=== PATIENT | male | born 1935 | race African-American/Black ===

== ENCOUNTER 2020-02-06 11:32 | Inpatient (IN) | payer OTHER ==
[~2020-02-06] VITALS: Ht 180.3 cm; Wt 85.3 kg
[2020-02-06] VITALS (32 sets, daily range): BP systolic 77–134; BP diastolic 45–79
--- NOTE | ~2020-02-06 | HC ---
[facility] [address] [place] [address] CONSULTATION Name: KEELY RICARDO Room #: 243-P ADM IN M.R.#: [id number] Admission: 02/06/20 Attend Phys: Chadd Mann MD Discharge: Date of : 31 Report #: [id number] THIS REPORT FOR: cc: Eulogio Moreira MD,Eulogio Morris,Oma Hahn MD ~ CC: Chadd Moreira REASON FOR CONSULTATION: Elevated creatinine. REASON FOR PRESENTATION: Weakness. HISTORY OF PRESENT ILLNESS: This is obtained from the medical chart. The patient has advanced dementia and is not able to provide me with any details. He was brought from his nursing facility on 02/06/2020 because of a concern of increased weakness. He resides at the [facility]. Nursing staff also reported some increased shortness of breath. He was found to have severe bradycardia. Chest x-ray was consistent with bilateral pulmonary infiltrates, effusion. The patient has had a CTA with contrast on presentation. The patient's creatinine on presentation was within normal range; however, it continued to rise ever since the , up to 1.7 as of this morning. The patient's sodium has been persistently elevated. It looks like that the patient had significant compromise of his oral intake and is not able to take free water orally. PAST MEDICAL HISTORY: 1. Chronic kidney disease. 2. History of pleural effusion, post-thoracentesis. 3. Atrial fibrillation. 4. There is a mention of history of cirrhosis, ascites with past paracentesis. REVIEW OF SYSTEMS: Unobtainable given the patient's current mental status. MEDICATIONS: Obtained from the medical chart revealed that the patient is on: 1. Aspirin. 2. Gabapentin. 3. Lactulose. 4. Glipizide. 5. Lasix. FAMILY HISTORY: Unobtainable given the patient's current mental status. ALLERGIES: None. FAMILY AND SOCIAL HISTORY: Unobtainable given the patient's current mental status. [facility] [address] [place] [address] CONSULTATION Name: KEELY RICARDO Room #: 243-P [facility] IN M.R.#: [id number] Admission: 02/06/20 Attend Phys: Chadd Mann MD Discharge: Date of : 31 Report #: [id number] PHYSICAL EXAMINATION: GENERAL: The patient is extremely cachectic and emaciated. He is confused. VITAL SIGNS: He had significant low blood pressure reading all through yesterday; however, his blood pressure is now 113/61, pulse rate is 84, respiratory rate is 19. HEAD AND NECK: No jugular venous distention. Dry mucous membranes. CARDIOVASCULAR: No rub. ABDOMEN: Soft with distention. EXTREMITIES: Lower extremities, Bladimir wraps applied bilaterally. LABORATORY VALUES: Reviewed. Hemoglobin is 8.2, platelets are 62,000. Sodium is 150, chloride is 110, BUN is 32, creatinine is 1.7. ASSESSMENT, IMPRESSION AND PLAN: 1. Hypernatremia. 2. Acute kidney injury post-contrast exposure. 3. Bilateral pleural effusion. 4. Ascites. 5. Chronic kidney disease. 6. History of cerebrovascular accident. 7. The patient's acute kidney injury is related to contrast exposure, hypotension. This seems to have stabilized. 8. I will reformulate his IV fluid to address his hypernatremia. Discontinue current fluid. 9. No further diuresis. 10. Continue to watch electrolytes. 11. Severe water deficit contributing to his hypernatremia. We will continue to adjust his IV fluid and follow accordingly. The patient is a no code status and given his severe comorbid conditions, palliative and comfort care seems to be reasonable as per the pulmonary note. By: [id number] Oma Morris MD /nt
[2020-02-06 12:23] LABS: HEMATOCRIT 30.6 % (42.0-52.0); MCH 30.4 pg (26.0-34.0); MCHC 32.8 g/dL (28.0-37.0); MCV 92.7 fL (80.0-100.0); RDW 16.3 % (10.5-14.5)
--- NOTE | 2020-02-06 12:24 | EKG ---
[facility] [place] [address] [place] [address] ELECTROCARDIOGRAM REPORT Name: KEELY RICARDO Room #: PRE M.R.#: [id number] Admission: Attend Phys: Discharge: Date of : 31 Report #: [id number] THIS REPORT FOR: cc: Atul Mckinnon MD [facility] ~ THIS REPORT FOR: //name// [facility] ED Test Date: 2020-02-06 Test Time: 11:54:08 Pat Name: KEELY RICARDO Department: Room: Gender: M Stem Shaper: NMD : 1935 Requested By: Radha Bull Order Number: [id number] MD: Atul Mckinnon Measurements Intervals [place] Rate: 78 P: 21 DE: 211 QRS: 22 QRSD: 78 T: QT: 491 QTc: 560 Interpretive Statements SINUS ARRHYTHMIA Borderline low voltage, extremity leads Nonspecific T abnormalities, lateral leads No previous ECG available for comparison Electronically Signed On 02-06-2020 12:24:21 CDT by Atul Mckinnon [email or web address] <ELECTRONICALLY SIGNED> By: Atul Mckinnon MD, FACC 02/06/20 1224 1154 1154 Atul Mckinnon MD, FACC /EPI
[2020-02-06 12:31] LABS: ANION GAP 14 mmol/L (7-16); BUN 31 mg/dL (7-18); CALCIUM 8.7 mg/dL (8.5-10.1); CHLORIDE 110 mmol/L (98-107); CO2 25 mmol/L (21-32); CREATININE 1.2 mg/dL (0.7-1.3); GLUCOSE 105 mg/dL (74-106); POTASSIUM 3.9 mmol/L (3.5-5.1); SODIUM 149 mmol/L (136-145)
[2020-02-06 12:41] LABS: ALBUMIN 4.2 g/dL (3.4-5.0); SGOT 41 U/L (15-37); SGPT 14 U/L (30-65); TOTAL BILIRUBIN 0.6 mg/dL (0.2-1.0); TOTAL PROTEIN 7.3 g/dL (6.4-8.2); TROPONIN-I <0.06 ng/mL (<0.06)
[2020-02-06 13:01] LABS: BE(vivo) 3.3 mmol/L (-2 to +3); PCO2 56.8 mmHg (35.0-45.0); PO2 62.7 mmHg (80.0-100.0); sO2 90.2 % (92.0-98.0)
[2020-02-06 13:20] LABS: ABSOLUTE NEUTROPHILS 0.9 thou/uL (1.4-8.2); ANISOCYTOSIS 2+; ATYPICAL LYMPHS 1 %; PLATELET COUNT 52 thou/uL (150-400); PLATELET ESTIMATE NORMAL
[2020-02-06] MEDS ORDERED: JUVEN PACKET1 EAC1 PO (14:04)
[2020-02-06] MEDS ORDERED: ASA81BEC PO (14:04)
[2020-02-06] MEDS ORDERED: ZINC SULFATE220 MG PO (14:05)
[2020-02-06] MEDS ORDERED: POTASSIUM20 PO (14:06)
[2020-02-06] MEDS ORDERED: GLUCOTROL5 MG PO (14:06)
[2020-02-06] MEDS ORDERED: NEURONTIN100 MG PO (14:06)
[2020-02-06] MEDS ORDERED: KRISTALOSE20 GM PO (14:07)
[2020-02-06] MEDS ORDERED: LASIX 40 MG TAB40 MG PO (14:07)
[2020-02-06] MEDS ORDERED: PROAIR DIGIHAL90 MCG PO (14:08)
--- NOTE | 2020-02-06 16:15 | NUR ---
Patient admitted to ICU room 241 per cart from the ED at 1510. Attached to cardiac and O2 sat monitors. BP monitored. Wound care to lower extermities done after photos obtained. Extermities cleaned with sterile water, saline gauze to ulcer area of rt posterior leg, zerofoam gauze, ABD's , kerlix and erika wrap to leg lesions. Condom cath applied, Patient unresponsive throughout admission.
--- NOTE | 2020-02-06 17:30 | NUR ---
Patient is alert and responsive, able to tell us his name, age and date of . Asking about what happened to him. Singer cath inserted. awaiting repeat creatinine results, for ct of chest for PE r/o.
[2020-02-06 17:59] LABS: CALCIUM 8.6 mg/dL (8.5-10.1); CREATININE 1.1 mg/dL (0.7-1.3); POTASSIUM 4.1 mmol/L (3.5-5.1)
[2020-02-06 18:00] LABS: MAGNESIUM 2.4 mg/dL (1.8-2.4)
--- NOTE | 2020-02-06 20:50 | NUR ---
[address] PER BED WITH O2 VIA FM. WITHOUT INCIDENT SERUM CREATININE WAS 1.1. PATIENT HAD BRIEF EPISODES OF HEART RATE DECREASING AND ONCE BP DIPPED INTO THE 70'S BUT THEN HEART RATE UP TO THE 70'S AND BP IN THE 110'S. PATIENT IS ALERT FOR CT SCAN. PROVO BOOTS APPLIED.
[2020-02-06 22:16] LABS: URINE BILIRUBIN NEGATIVE (Negative); URINE BLOOD 3+ (Negative); URINE CLARITY SL CLOUDY; URINE COLOR YELLOW; URINE GLUCOSE-RANDOM* NEGATIVE (Negative); URINE KETONES NEGATIVE (Negative); URINE LEUKOCYTES-REFLEX NEGATIVE (Negative); URINE NITRITE-REFLEX NEGATIVE (Negative); URINE PROTEIN (DIPSTICK) TRACE (Negative); URINE SPECIFIC GRAVITY 1.015 (1.005-1.035); URINE UROBILINOGEN 0.2 E.U./dl (0.2-1.0)
[2020-02-06 22:23] LABS: CASTS None Seen /LPF (None Seen); CRYSTALS None Seen /LPF (None Seen); SQUAMOUS 0-3 Few /LPF (0-3); URINE RBC >20 Many /HPF (0-2)
[2020-02-06 22:24] LABS: BACTERIA-REFLEX 1-9 Few /HPF (None Seen); URINE WBC-REFLEX None Seen /HPF (0-5)
[2020-02-07] VITALS (55 sets, daily range): BP systolic 86–140; BP diastolic 38–82
[2020-02-07 05:00] LABS: ABSOLUTE NEUTROPHILS 1.1 thou/uL (1.4-8.2); EOSINOPHILS 4.7 % (0.0-3.0); WBC 3.1 thou/uL (4.0-11.0)
[2020-02-07 05:02] LABS: BASOPHILS 0.4 % (0.0-2.0); HEMATOCRIT 26.7 % (42.0-52.0); LYMPHOCYTES 53.1 % (24.0-44.0); MCH 30.6 pg (26.0-34.0); MCHC 33.6 g/dL (28.0-37.0); MCV 91.1 fL (80.0-100.0); MONOCYTES 5.2 % (1.0-8.0); PLATELET COUNT 46 thou/uL (150-400); POLYS 36.6 % (36.0-66.0); RBC 2.93 mil/uL (4.50-6.00); RDW 15.9 % (10.5-14.5)
[2020-02-07 05:30] LABS: ALBUMIN 3.2 g/dL (3.4-5.0); ANION GAP 7 mmol/L (7-16); BUN 30 mg/dL (7-18); CALCIUM 8.6 mg/dL (8.5-10.1); CHLORIDE 110 mmol/L (98-107); CO2 32 mmol/L (21-32); CREATININE 1.4 mg/dL (0.7-1.3); GLUCOSE 50 mg/dL (74-106); MAGNESIUM 2.2 mg/dL (1.8-2.4); POTASSIUM 4.1 mmol/L (3.5-5.1); SGOT 38 U/L (15-37); SGPT 21 U/L (30-65); SODIUM 149 mmol/L (136-145); TOTAL BILIRUBIN 0.7 mg/dL (0.2-1.0); TOTAL PROTEIN 6.7 g/dL (6.4-8.2); TROPONIN-I <0.06 ng/mL (<0.06)
--- NOTE | 2020-02-07 09:00 | NUR ---
WOUND NURSE HERE. STATE THEY WILL CONSULT WOUND MD FOR ORDERS ON VASCULAR WOUNDS TO LES. SACRAL REGOIN SLIGHTLY DISCOLORED WELL.
--- NOTE | 2020-02-07 09:29 | NUR ---
WOUND CONSULT; THE PATIENT HAS WOUNDS TO THE LOWER EXT(S) WITH EDEMA. HIS ICU STATUS AND POSSIBLE NEED FOR COMPRESSION WE WILL CONSULT DR FESTUS LANCE. DISCUSSED WITH KATHY
--- NOTE | 2020-02-07 10:00 | NUR ---
DR. KOHLER NOTIFED OF HR 30S BRIEFLY. BP WAS STABLE. SEE VSS. ALSO REPORTED HYPOGLYCEMIA. ORDERS GIVEN. DR. LINDSEY CALLED BACK. STATES HE WAS GOING TO LOOK AT EVERYTHING AND PERHAPS ADD DEXTROSE TO IV. WILL HOLD OFF ON IV UNTIL DR. Josy COX DECIDES. REPORTED TO MD THAT PT WAS DNR IN [facility]. MD WILL PUT DNR ORDERS IN COMPUTER. NO FAMILY LISTED TO NOTIFY.
--- NOTE | 2020-02-07 10:11 | NUR ---
chart review. cm unable to visit with pt rt in icu and preserve ppe. pt lives ltc at [facility]. cm spoke with daughter peg via phone call, she reported he used wheel chair and sometimes could go from bed to wheel chair on his own. able to feed self meals. he used to come and get fluid taken off, agree with dcp back to [facility] ltc when stable per charbel ruvalcaba. will cont following as needed for dc needs.
--- NOTE | 2020-02-07 11:30 | NUR ---
PT TRANSFERRED TO POD 2 ROOM 243 ALL BELONGINGS WITH PT.
[2020-02-07 15:29] LABS: INR 1.1; PROTIME 10.8 Seconds (9.3-11.4)
[2020-02-08] VITALS (33 sets, daily range): BP systolic 84–130; BP diastolic 37–85
[2020-02-08 06:27] LABS: HEMOGLOBIN 9.1 gm/dL (14.0-18.0); WBC 3.2 thou/uL (4.0-11.0)
[2020-02-08 06:31] LABS: HEMATOCRIT 27.5 % (42.0-52.0); MCH 30.7 pg (26.0-34.0); MCV 92.9 fL (80.0-100.0); RBC 2.96 mil/uL (4.50-6.00); RDW 15.7 % (10.5-14.5)
[2020-02-08 06:32] LABS: CALCIUM 8.3 mg/dL (8.5-10.1); CREATININE 1.6 mg/dL (0.7-1.3); MAGNESIUM 2.2 mg/dL (1.8-2.4); POTASSIUM 3.8 mmol/L (3.5-5.1)
--- NOTE | 2020-02-08 10:27 | NUR ---
0915 CONSENT FOR PLT TRANSFUSION AND THORACENTSIS- ARACELI OVALLES GAVE CONSENT OVER TELEPHONE. 0945 DR LINDSEY AT BEDSIDE-NEW ORDERS FOR FLUIDS AND PLTS. 1025 DR PAREKH AND ZHOU AT BEDSIDE FOR THORACENTESIS. 1010 DR MARCANO AT BEDSIDE, IF PT TOLERATES THORACENTSIS, OK TO MOVE TO [facility]
[2020-02-08 12:28] LABS: CLARITY TURBID; COLOR RED; SOURCE RIGHT CHEST; TOTAL VOLUME 60 mL
--- NOTE | 2020-02-08 13:35 | HC ---
[facility] [address] [place] [address] CONSULTATION Name: KEELY RICARDO Room #: 243-P ADM IN M.R.#: [id number] Admission: 02/06/20 Attend Phys: Chadd Mann MD Discharge: Date of : 31 Report #: [id number] THIS REPORT FOR: cc: Eulogio Moreira MD,Eulogio Lundberg,Puma Peacock MD ~ CC: Chadd Moreira DATE OF SERVICE: 02/07/2020 CHIEF COMPLAINT: Lower extremity ulcerations. HISTORY OF PRESENT ILLNESS: This is an 84-year-old male patient who is seen in the Intensive Care Unit. He is a little bit confused and history is somewhat limited. Per his admission history and physical, he presented from [facility] with increasing shortness of breath. He was noted to have some pulmonary edema. I have been asked to see him with regard to wound care. PAST MEDICAL HISTORY: Positive for history of respiratory failure, congestive heart failure, bradycardia, dementia, type 2 diabetes mellitus, chronic kidney disease stage 3, cirrhosis of the liver and history of pleural effusions. MEDICATIONS: Include aspirin, Dylan, zinc, Glucotrol, Neurontin, K-Dur, Lasix, Kristalose and ProAir Digihaler. SOCIAL HISTORY: Negative for alcohol or tobacco use. FAMILY HISTORY: Noncontributory. REVIEW OF SYSTEMS: Really not obtainable due to his current level of dementia. PHYSICAL EXAMINATION: VITAL SIGNS: At this time include temperature 36.5, pulse 60, respiratory rate 15, blood pressure 118/52. GENERAL: This is a chronically ill-appearing male patient who appears to be in minimal distress. HEENT: Head normocephalic. Nose and throat were clear. NECK: Supple. LUNGS: Diminished. HEART: Regular rhythm. ABDOMEN: Soft, nontender. EXTREMITIES: Lower extremities demonstrates several small areas of ulceration on the lower extremities, more on the right than on the left with venous stasis dermatitis bilaterally. The wounds/ulcerations are not overtly infected. NEUROLOGIC: The patient does appear to move symmetrically. [facility] [address] [place] [address] CONSULTATION Name: KEELY RICARDO Room #: 243-P [facility] IN M.R.#: [id number] Admission: 02/06/20 Attend Phys: Chadd Mann MD Discharge: Date of : 31 Report #: [id number] LABORATORY STUDIES: Include sodium 149, potassium 4.1, chloride 110, BUN 30, creatinine 1.4, albumin is 3.2. White blood cell count 3.1 with a hemoglobin of 9.0. CLINICAL IMPRESSION: 1. Venous type ulcerations, bilateral lower extremity. 2. Venous stasis dermatitis, bilateral lower extremities. 3. Congestive heart failure with exacerbation. 4. Chronic kidney disease stage 3. 5. Type 2 diabetes mellitus. 6. Advanced dementia. 7. Mild protein-calorie malnutrition. RECOMMENDATIONS: At this point in time, we will recommend AmLactin lotion to the dry skin, Xeroform gauze to the open areas, followed by ABD, Kerlix, Bladimir wrap from toes to knees. Elevation of both lower extremities. Heel protectors at all times. We will recommend maximizing nutrition to promote wound healing. The hospitalist and Cardiology are managing his other problems including hypertension, congestive heart failure, AFib, diabetes and chronic kidney disease. I appreciate being asked to see him in consultation. We will continue to follow here in the hospital. <ELECTRONICALLY SIGNED> By: Puma Lundberg MD 02/08/20 1335 1711 1919 Puma Lundberg MD /nt
[2020-02-08 14:35] LABS: BF NEUTROPHILS 2 %; BF NUCLEATED CELLS 4295 /mm3; BF RBC 29726 /mm3
[2020-02-08 14:36] LABS: BF MACROPHAGE 18 %
--- NOTE | 2020-02-08 15:08 | NUR ---
FAXED CLINICAL UPDATE TO [facility] RECEIVED CONFIRMATION AND SPOKE WITH CONNIE IN ADM SHE RECEIVED UPDATE. DP TO FOLLOW.
[2020-02-09] VITALS (58 sets, daily range): BP systolic 81–135; BP diastolic 22–82
--- NOTE | 2020-02-09 02:21 | NUR ---
Beginning of shift temp 100.5 axillary, urine out put 50ml in 4 hours, patient becoming tachy-HR 90s & SBP 80-90s. Arianna Shine TREND INVESTIGATOR notified, blood cultures X2, lactic acid, and LR 500ML bolus orders given.Orders implemented
[2020-02-09 03:10] LABS: HEMOGLOBIN 8.5 gm/dL (14.0-18.0); MCHC 32.6 g/dL (28.0-37.0); MCV 92.1 fL (80.0-100.0); RBC 2.82 mil/uL (4.50-6.00); RDW 15.7 % (10.5-14.5); WBC 4.3 thou/uL (4.0-11.0)
[2020-02-09 03:12] LABS: CALCIUM 7.8 mg/dL (8.5-10.1); CREATININE 1.7 mg/dL (0.7-1.3); POTASSIUM 4.2 mmol/L (3.5-5.1)
[2020-02-09 04:43] LABS: BE(vivo) 5.4 mmol/L (-2 to +3); HCO3 31.4 mmol/L (22.0-26.0); PO2 83.3 mmHg (80.0-100.0); pH 7.383 (7.360-7.450); sO2 95.9 % (92.0-98.0)
--- NOTE | 2020-02-09 07:44 | NUR ---
DR. LINDSEY HERE ROUNDING ON PT.NOTIFIED OF POSITIVE SEPSIS SCREEN-TEMP 100.5, LOW BP, INCREASED HR AND SHIFT TOTAL URINE OUTPUT 175ML, AND INTERVENTIONS. DR. LINDSEY STATES-WILL SEE PT SHORTLY AND WRITE ORDERS NEEDED.
--- NOTE | 2020-02-09 11:17 | NUR ---
ASSUMED CARE @ 0700 02/09/20, PT ASSESSMENTS AND VSS COMPLETE PER ICU PROTOCOL. DR LINDSEY @ BEDSIDE @ 0730, IT WAS COMMUNICATED TO HIM BY THE GRINDER SET UP OPERATOR RN THAT PT SCORED POSITIVE FOR SEPSIS AND OUTPUT HAD BEEN LOW THROUGH OUT THE NIGHT. DIPESH SHERIFF @ BEDSIDE @ 0740, NO ORDERS RECIEVED. DR MARCANO @ BEDSIDE @ 1100, DR MARCANO INFORMED ABOUT MINIMAL UO 20-30ML/HR, NO ORDERS RECIEVED AT THIS TIME.
[2020-02-09 16:06] LABS: BODY FLUID ALBUMIN 2.3 g/dL (Not Estab.); BODY FLUID AMYLASE 62 U/L (()); BODY FLUID GLUCOSE 94 mg/dL (()); BODY FLUID LDH 189 IU/L (()); BODY FLUID PROTEIN 3.9 g/dL (())
--- NOTE | 2020-02-09 23:17 | NUR ---
IV ATTEMPTS BY THIS RNX2, X1 BY ADDITIONAL LOCOMOTIVE ENGINEER DIESEL. CALL TO ER TO ASK FOR HELP, POSSIBLE EJ. ATTEMPT X2 BY BUNDLER SEASONAL GREENERY. ER BRANCH OPERATIONS COORDINATOR WITH Fina CUI PLACED FOR FLUIDS AND MED ADMINISTRATION.
[2020-02-10] VITALS (21 sets, daily range): BP systolic 83–127; BP diastolic 39–63
[2020-02-10 05:26] LABS: HEMOGLOBIN 8.2 gm/dL (14.0-18.0); MCH 30.2 pg (26.0-34.0); MCHC 32.9 g/dL (28.0-37.0); MCV 91.7 fL (80.0-100.0); RBC 2.73 mil/uL (4.50-6.00); RDW 15.8 % (10.5-14.5); WBC 3.7 thou/uL (4.0-11.0)
[2020-02-10 05:40] LABS: ALBUMIN 3.1 g/dL (3.4-5.0); CALCIUM 8.1 mg/dL (8.5-10.1); CREATININE 1.7 mg/dL (0.7-1.3); MAGNESIUM 2.1 mg/dL (1.8-2.4); POTASSIUM 3.7 mmol/L (3.5-5.1); TOTAL PROTEIN 6.6 g/dL (6.4-8.2)
--- NOTE | 2020-02-10 07:54 | NUR ---
ASSUMMED CARE FROM NIGHT NURSE AT 0700. DR. RIOS IN TO EXAMINE PATIENT, ORDERS NOTED
[2020-02-10 11:06] LABS: SOURCE CHEST
--- NOTE | 2020-02-10 12:17 | NUR ---
chart review. pt remain on o2 per nc. possible going to have swallow eval. in m/s status. cm spoke with daughter peg via phone call, no concerns or needs voice. thank you for calling per peg. cm provided verbal report to admit at [facility]. discuss with hospitalist, pt will need covid test sat or sun for anticipated dc back to [facility] on thursday.
--- NOTE | 2020-02-10 16:40 | NUR ---
PATIENT TRANSFERRED TO ROOM 460 VIA BED WITH O2 AND BELONGINGS. REPORT CALLED TO BALTAZAR. PATIENT'S DAUGHTER CALLED BACK AFTER MESSAGE LEFT AND UPDATED TO THE ROOM NUMBER AND PATIENT'S STATUS. PATIENT REMAINS CONFUSED.
--- NOTE | 2020-02-10 17:07 | PATH ---
[facility] [address] [place] [address] PATHOLOGY RPT PROCEDURE Name: KEELY RICARDO Room #: 460-P ADM IN M.R.#: [id number] Admission: 02/06/20 Date of : 31 Discharge: Report #: [id number] Path Case #: [id number] Note [facility] Accession Number: [id number] TESTS RESULT FLAG UNITS REF RANGE LAB Clinician Provided Cytology Information No. of containers..01 Other (Miscellaneous) Source: RIGHT PLEUAL FLUID DIAGNOSIS: 02 RIGHT PLEUAL FLUID NEGATIVE FOR MALIGNANT EPITHELIAL CELLS. REACTIVE MESOTHELIAL CELLS ARE PRESENT. THIS INTERPRETATION INCLUDES EVALUATION OF A CELL BLOCK. Pathologist ICD10: 02 I50.33 Signed out by: 02 Hilda Mcginnis MD, Pathologist NPI- [id number] Performed by: 01 Ca [employer]ang [employer]pler ([facility]) Gross description: 01 20ML, CLOUDY RED, 1 TP 1 CB /LCS 02/09/2020 1423 Local FLAG LEGEND: L-Low Normal,H-High Normal,LL-Alert Low,HH-Alert High <-Panic Low,>-Panic High,A-Abnormal,AA-Critical Abnormal Performed at: [address] [place] [address] Swapnil Morales MD, [address] [address] Hilda Mcginnis MD, Specimen Comment: A courtesy copy of this report has been sent to [phone], [phone] Specimen Comment: [phone] Specimen Comment: Report sent to / DR LINDSEY Performed at: [address], [place], [place] [id number] MD Swapnil Morales MD Phone: [phone]
--- NOTE | 2020-02-10 17:56 | NUR ---
Pt transfered from icu per bed at 1700 in stable condition.Assisted pt with tray setup and pt took few bites of mashed potato with carrot.Pt doesn't like pureed diet.Assessment completed.No changes in previous assessment.Pt in bed resting and watching tv.Will continue to monitor.
--- NOTE | 2020-02-11 05:33 | NUR ---
ASSUMED CARE OF PT AT 1900HRS. PT IS AOX1-2 AND NEEDS MUST BE ANTICIPATED. FALL PRECAUTION IN PLACE. MARY IN PLACE AND IS PATIENT. IVF CONTINUED. PT HAS LOW UO. PT WAS ABLE TO GET COMFORTABLE AND SLEEP PART OF THE SHIFT. VSS AND NO S/S OF ACUTE DISTRESS. WILL CONTINUE TO MONITOR.
[2020-02-11 06:09] LABS: CALCIUM 7.7 mg/dL (8.5-10.1); CREATININE 1.4 mg/dL (0.7-1.3); PHOSPHORUS 2.6 mg/dL (2.5-4.9); POTASSIUM 3.4 mmol/L (3.5-5.1)
[2020-02-11 07:46] VITALS: BP 115/52
[2020-02-11 17:08] VITALS: BP 129/69
--- NOTE | 2020-02-11 17:48 | NUR ---
Assumd pt care this am, alert to self and is forgetful. FC in place draining yellow urine. Pt is a feeder, 2 liters of O2 via NC in place. Right sided weakness is noted. Bed bath given and wound care and dressing change done. Currenltly on honey thickened liquids and a pureed diet. Hydration promoted, small frequent feedings done. Plan is for a thoracenthesis on Thursday. POc followed with no signs or verbalizations of distress noted.
[2020-02-11 20:47] VITALS: BP 132/67
[2020-02-12 05:56] LABS: ALBUMIN 2.9 g/dL (3.4-5.0); CALCIUM 7.6 mg/dL (8.5-10.1); PHOSPHORUS 2.4 mg/dL (2.5-4.9); POTASSIUM 3.9 mmol/L (3.5-5.1)
[2020-02-12 08:13] VITALS: BP 108/49
[2020-02-12 18:00] VITALS: BP 131/68
[2020-02-12 19:26] VITALS: BP 142/87
--- NOTE | 2020-02-13 03:28 | NUR ---
patient aox1 confused and forgetful. patient was yelling when need help. dressing done on ble, bleeding and ozzing noted with a strong odor. patient turned q 2 hours. patient encouraged fluids and food. fall precaution in place.patient has edema +3 on ble and bue, ble and bue elevated. patient in bed asleep at this time breathing regular and unlaboured.
[2020-02-13 07:50] VITALS: BP 107/65
[2020-02-13 10:00] LABS: CREATININE 1.2 mg/dL (0.7-1.3); POTASSIUM 4.1 mmol/L (3.5-5.1)
--- NOTE | 2020-02-13 14:08 | NUR ---
CARE TEAM INDICATED THAT PT IS TO HAVE A PARACENTESIS TODAY. REPEAT COVID TEST HAS BEEN ORDERED AND COLLECTED PT'S LAST TEST WAS FROM 02/06/20. PHYSICIAN HAD MENTIONED PALLIATIVE CARE CONSULT. IT IS ANTICPATED THAT PT WILL RETURN TO [facility] L[facility] ONCE MEDICALLY STABLE. CM TO FOLLOW INDICATED WITH DC PLANNING.
[2020-02-13 15:00] VITALS: BP 112/60; BP 158/92
[2020-02-13 16:00] VITALS: BP 160/94
--- NOTE | 2020-02-13 17:59 | NUR ---
ASSUMED CARE @ 0700 02/13/20, PT ASSESSMENTS AND VSS COMPLETE PER MS ORDERS, PT DOWN TO US FOR THORACENTESIS DURING THE SHIFT, 1.65L ASPIRATED, NO COMPLICATIONS NOTED. WILL CONT TO MONITOR.
[2020-02-13 20:04] VITALS: BP 113/63
[2020-02-14 01:06] LABS: GLYCOHEMOGLOBIN (HGB A1C) 4.3 % (4.8-5.6)
--- NOTE | 2020-02-14 05:32 | NUR ---
ASSUMED CARE OF PT AT 1900HRS. PT AOX1-2 AND NEEDS MUST BE ANTICIPATED. FALL PRECAUTION PLACE. ASSESSMENT CHARTED. LFA IV INFILTRATED THIS SHIFT. MARY IN PLACE AND IS PATIENT. O2 VIA NC AT 2L. PT WAS CUONG TO GET COMFORTABLE AND SLEEP PART OF THE SHIFT. VSS AND NO S/S OF ACUTE DISTRESS. WILL CONTINUE TO MONITOR.
[2020-02-14 07:17] VITALS: BP 114/70
--- NOTE | 2020-02-14 11:50 | HC ---
[facility] [place] [address] CONSULTATION Name: KEELY RICARDO Room #: 460-P ADM IN M.R.#: [id number] Admission: 02/06/20 Attend Phys: Chadd Mann MD Discharge: Date of : 31 Report #: [id number] THIS REPORT FOR: cc: Eulogio Moreira MD,Dimas Orozco MD, MD ~ CC: Chadd Moreira DATE OF SERVICE: 02/13/2020 ENDOCRINE CONSULTATION NOTE CONSULTING PHYSICIAN: Dr. Mann. REASON FOR CONSULTATION: Uncontrolled type 2 diabetes mellitus, hypoglycemia. HISTORY OF PRESENT ILLNESS: This is an 84-year-old male patient whose medical background is noted for multiple medical issues including type 2 diabetes mellitus, congestive heart failure and atrial fibrillation. He resides at a long term facility and was admitted on 02/06/2020 due to respiratory failure and worsening shortness of breath. The patient has limited history giving capacity, but indicated that he has had diabetes mellitus type 2 for many years. He was unaware of the details of his active therapeutics selections as well as daily blood glucose patterns, but denied having had issues with major hypoglycemia. He is unaware of difficulties pertaining to diabetic complications. His admission records indicate that he is maintained on glipizide 2.5 mg daily. Again, the patient is unaware of difficulties pertaining to diabetic retinopathy, nephropathy or neuropathy. His history is otherwise noted for congestive heart failure and atrial fibrillation as well as a history of CVA. REVIEW OF SYSTEMS: CONSTITUTIONAL: Occasional issues with fatigue, tiredness, but no fever, chills or body weight changes. HEENT: Negative for sore throat, sinus pain or ear drainage. PULMONARY: Noted for shortness of breath, intermittent cough. GASTROINTESTINAL: Negative for abdominal pain, nausea, vomiting or changes in bowel movement or frequency. NEUROLOGY: Negative for loss of consciousness, seizure activity. Otherwise, his review of systems is noncontributory other than those mentioned in HPI. PAST MEDICAL HISTORY: 1. Type 2 diabetes mellitus. [facility] [address] [place] [address] CONSULTATION Name: KEELY RICARDO Room #: 460-P ADM IN M.R.#: [id number] Admission: 02/06/20 Attend Phys: Chadd Mann MD Discharge: Date of : 31 Report #: [id number] 2. Hypertension. 3. Cerebrovascular accident. 4. Congestive heart failure. 5. Atrial fibrillation. 6. Dementia. 7. Chronic kidney disease stage 3. 8. Cirrhosis. 9. History of pleural effusions. OUTPATIENT MEDICATIONS: Include aspirin 81 mg daily, Dylan 1 packet b.i.d., zinc sulfate daily, glipizide 2.5 mg daily, gabapentin 100 mg t.i.d., potassium chloride 20 mEq b.i.d., Lasix 40 mg b.i.d., lactulose 20 grams b.i.d., albuterol q. 4 hours p.r.n. ALLERGIES: No known drug allergies. FAMILY HISTORY: Noncontributory. SOCIAL HISTORY: The patient lives at a long term facility. He denies use of tobacco, alcohol or illicit drugs. PHYSICAL EXAMINATION: GENERAL: Pleasant male patient who is not in apparent pain or distress, but appears a bit lethargic. VITAL SIGNS: Blood pressure 107/65 mmHg, heart rate is 92 beats per minute, respirations 24 per minute, temperature 36.6 degrees Celsius. CONSTITUTIONAL: The patient is lying in bed, appears a bit lethargic, but not in pain or distress. HEENT: Anicteric sclerae. Intact extraocular motions. NECK: Supple without carotid bruits or thyromegaly. CHEST: Noted for moderate air entry bilaterally without wheezes or crackles. HEART: Regular rate and rhythm without murmurs or gallops. ABDOMEN: Soft, lax. No guarding. Active bowel sounds. EXTREMITIES: Lower extremity exam is noted for trace ankle edema. There is no skin breaks or ulcerations. Pedal pulses are faint but appreciated. NEUROLOGIC: Awake, lethargic, not oriented. Largely nonfocal exam, although generally weak. PSYCHIATRIC: The patient answers in few words, slurred speech, poor thought content. LABORATORY DATA: The patient's blood glucose values have been reviewed since his admission on the and he has had multiple bouts of hypoglycemia, most mild to moderate, but with a drop as low as 55 mg/dL and then 46 mg/dL on 02/11/2020. His most recent is 86 mg/dL. Otherwise, sodium 139, potassium 4.1, chloride 103, CO2 of 33, anion gap 3, BUN 21, creatinine 1.2, got as high as 1.7 on 02/09/2020. AST 37, total bilirubin 1.0, calcium 8.0, phosphorus 2.4, [address] [address] CONSULTATION Name: KEELY RICARDO Room #: 460-P ADM IN Amanda#: [id number] Admission: 02/06/20 Attend Phys: Chadd Mann MD Discharge: Date of : 31 Report #: [id number] magnesium 2.1, alkaline phosphatase 68, ALT 17, total protein 6.6, albumin 2.9 and EGFR 70. Ammonia 62. Lactic acid 0.8. Troponin is negative. BNP 912. INR 1.1. White blood count 3.7, hemoglobin 8.2, hematocrit 25, platelets 60. ASSESSMENT AND PLAN: 1. Hypoglycemia. This seems to be precipitated by his active therapy with sulfonylurea. I believe that his advanced liver disease without a doubt compounds the risk for hypoglycemia as it is bound to compromise his gluconeogenesis ability. I agree with the complete stoppage of glipizide both now and terminal system operator. The patient is currently maintained on D10 IV fluids at a rate of 50 mL an hour, which I would like to maintain until the patient has maintained blood glucose values over 180 mg/dL twice in a row to enable a taper down and finally off this line of support. Until then, blood glucose monitoring will continue routinely and the patient will be managed as per the [facility]'s hypoglycemia protocol should hypoglycemia emerge again. 2. Type 2 diabetes mellitus. As noted in HPI, the patient is unable to give detailed historic accounts of his glycemic control outlook. That said, I will obtain a hemoglobin A1c to get a better assessment of this outlook. As noted, hypoglycemia has been rather concerning issue for him, although his active sulfonylurea dose is pretty minimal. I believe that his background advanced liver disease has exaggerated that risk. The patient would be better suited to utilize low-dose metformin therapy as that would be far less likely to bring about the risk of hypoglycemia that has been an issue with sulfonylurea. Another option for him would be low-dose DPP-4 inhibitors, i.e., Tradjenta 5 mg daily. A wilson priority going forward would be to avoid hypoglycemia in this patient where long-term diabetic complications are not necessarily as big of a concern. Essentially, a compromised hemoglobin A1c goal would be reasonable in his case to avoid hypoglycemia. In the immediate setting, continue with routine blood glucose monitoring and adjust his therapeutic plan as needed accordingly. 3. Hypertension. The patient's level of blood pressure control is adequate, continue the current regimen. 4. Metabolic encephalopathy. While this can be explained on the basis of the patient's multiple medical issues including liver disease and dementia, I would like to obtain a thyroid level to ensure the adequacy of this aspect. I have reviewed the patient's clinical care notes, laboratory data, and other pertinent clinical information for over 35 minutes in addition to my encounter time with the patient. I certainly appreciate this consultation by Dr. Mann. <ELECTRONICALLY SIGNED> By: Dimas Grubbs MD 02/14/20 [id number] Dimas Grubbs MD /nt
--- NOTE | 2020-02-14 16:22 | NUR ---
PHYSICIAN INDICATING THEY ARE LOOKING TO HAVE BS BETTER CONTROLED. DR. RICARDO CONSULTED FOR POSSIBLE PALLIATIVE CARE/HOSPICE SERVICES UPON PT'S RETURN TO [facility]. ANTICIPATE DC IN NEXT 24-48HRS. [facility] UPDATED. CM TO FOLLOW INDICATED WITH DC PLANNING.
[2020-02-14 16:50] VITALS: BP 117/59
--- NOTE | 2020-02-14 16:57 | NUR ---
FAXED CLINICAL UPDATE TO [facility] SPOKE WITH SHAHEEN IN ADM SHE RECEIVED UPDATE PT IS LTC THERE.
--- NOTE | 2020-02-14 20:02 | NUR ---
ASSUMED PT CARE THIS AM. PT VITAL SIGNS STABLE, ALERT TO SELF. FOAM DRESSING CHANGED ON COCCYX. PT REPOSITIONED ALLOWED. PT DID NOT COMPLAIN OF PAIN, SLEPT MOST OF SHIFT. MARY CATHETER PATENT. DIET TOLERATED WELL, TOOK MEDICATIONS CRUSHED IN APPLESAUCE. WOUND CARE ENDORSED TO NIGHT NURSE. IV PATENT. ENDORSED TO NIGHT NURSE.
[2020-02-14 20:29] VITALS: BP 122/60
[2020-02-15 07:37] VITALS: BP 115/59
--- NOTE | 2020-02-15 12:20 | NUR ---
CM CALLED AND SPOKE WITH PT'S DTR TO CONFIRM THAT SHE WAS AGREEABLE WITH PT RETURNING TO [facility] AND ELECTING HOSPICE SERVICES PER DR. RICARDO CONVERSTION YESTERDAY AFTERNOON. SHE INDICATED THAT NO THEY WERE NOT WANTING TO ELECT HOSPICE SERVICES AT TIME OF PT'S RETURN TO FACILITY. SHE INDICATED THAT SHE HAD BEEN IN COMMUNICATION WITH [facility] ABOUT POSSIBLE SERVICES AND THAT IS WHO THEY WOULD BE INTERESTED IN USING BUT AREN'T LOOKING TO ELECT SERVICES JUST YET. CM NOTIFIED CARE TEAM AND FACILITY. PHYSICAIN INDICATED PT REMAINS ON D5 DRIP AND THAT LONG PT MAINTAINS HIS GLUCOSE TODAY HE COULD POENTIALLY BE MEDICALLY STABLE FOR DC TOMORROW. REPEAT COVID TO BE ORDERED AND COLLECTED. CM TO FOLLOW INDICATED WITH DC PLANNING.
[2020-02-15 15:45] VITALS: BP 118/54
--- NOTE | 2020-02-15 18:02 | NUR ---
ASSUMED PT CARE THIS AM. PT VITAL SIGNS STABLE, A&OX2. CONFUSED ABOUT SITUATION AND TIME. PT CALLED WHEN NEEDED, HAD A BM DURING THE SHIFT. PT RECEIVED ORAL CARE, DID NOT ALLOW FOR REPOSITIONING, REFUSED Q2 TURNS. NURSE EDUCATED ON IMPORTANCE OF TURNING REGULARLY. WOUND CARE DONE AND PICTURES TAKEN. LEFT LEG HAS NO OPEN WOUNDS, WOUND DR AWARE. PT COUGHS WHEN EATING, MADE AWARE. PT REMAINS ON PUREED DIET WITH HONEY THICK LIQUIDS. WILL CONTINUE TO MONITOR.
[2020-02-15 21:54] VITALS: BP 122/70
--- NOTE | 2020-02-16 02:45 | NUR ---
ASSUMED CARE OF PT AT 1900HRS. PT AOX1-2 AND NEEDS MUST BE ANTICIPATED. FALL PRECAUTION IN PLACE. PT DENIES PAIN, NASUEA OR SOA. ASSESSMENT CHARTED. O2 CONTINUED AT 1L. PT TOOK MEDS CRUSHED WITH APPLESAUCE. PT TURNED Q2-3H. PT WAS ABLE OT GET COMFORTABLE AND SLEEP PART OF THE SHIFT. VSS AND NO S/S OF ACUTE DISTRESS. WILL CONTINUE TO MONITOR
[2020-02-16 11:00] VITALS: BP 122/70
[2020-02-16 11:01] VITALS: BP 122/70
--- NOTE | 2020-02-16 12:09 | NUR ---
PT DISCHARGING TODAY TO [facility] FAXED DC ORDERS/SUMMARY TO FACILITY SPOKE WITH CONNIE IN ADM SHE RECEIVED ORDERS AND ARRANGED TRANSPORT BY [facility] FOR 1400 TODAY. NOTIFIED PT'S DTR (ARACELI) OF DC AND TIME OF TRANSPORT. UNIT NOTIFIED AND CHART COPY PER US. RN TO CALL REPORT TO [phone].
--- NOTE | 2020-02-16 12:42 | NUR ---
FAXED CLINICAL UPDATE TO [facility] SPOKE WITH ANU CHAVEZ THAT PT WILL DC FROM [facility] TOMORROW 02/16 AND PT IS NOW ON PO ABX. THEY WILL BE ABLE TO ACCEPT TOMORROW.
[2020-02-16 12:46] VITALS: BP 115/55
--- NOTE | 2020-02-16 13:51 | NUR ---
CARE TEAM INDICATED THAT PT IS MEDICALLY STABLE TO DISCHARGE BACK TO [facility] THIS DAY. CHART COPY ORDERED. ORDERS FAXED. NURSE CALLED REPORT TO FACILITY. [facility] TRANSPORT ARRANGED FOR 1400. UNIT AND DTR WERE NOTIFIED. NO OTHER CM INTERVENTION INDICATED. CASE CLOSED.
--- NOTE | 2020-02-16 14:20 | NUR ---
DISCHARGE ORDERS REVIEWED AT THIS TIME SIGNED AND COPY IN CHART. IV ACSESS DCD AND MARY CATH DCD. ALL BELONGINGS PACKED AND SENT WITH PATIENT. NO PAIN OR RESP DISTRESS AT D/C. TRANSPORTATION HERE WITH [facility] TO TRANSPORT.
== END 2020-02-16 14:18 | DRG 291 ==
LOC: ER 11:32 → EROBS 13:51 → ICU 13:51 → 4W 02-10 17:01
PROVIDERS: Hospitalist; Internal Medicine; Internal Medicine Nephrology; Internal Medicine Pulmonary Disease; Nurse Practitioner; Physician Assistant; ADMIT Internal Medicine; ATTEND Internal Medicine
PROC: 0W993ZZ Drainage of Right Pleural Cavity, Percutaneous Approach (ICD-10-PCS; principal; 2020-02-08)
PROC: 30233R1 Transfusion of Nonautologous Platelets into Peripheral Vein, Percutaneous Approach (ICD-10-PCS; principal; 2020-02-08)
PROC: 0W993ZZ Drainage of Right Pleural Cavity, Percutaneous Approach (ICD-10-PCS; 2020-02-13)
DX: I13.0 Hypertensive heart and chronic kidney disease with heart failure and stage 1 through stage 4 chronic kidney disease, or unspecified chronic kidney disease (principal); J96.01 Acute respiratory failure with hypoxia; I50.33 Acute on chronic diastolic (congestive) heart failure; K72.00 Acute and subacute hepatic failure without coma; G92 Toxic encephalopathy; J96.02 Acute respiratory failure with hypercapnia; L97.829 Non-pressure chronic ulcer of other part of left lower leg with unspecified severity; L97.819 Non-pressure chronic ulcer of other part of right lower leg with unspecified severity; E44.1 Mild protein-calorie malnutrition; E87.0 Hyperosmolality and hypernatremia; R18.8 Other ascites; J91.8 Pleural effusion in other conditions classified elsewhere; N17.9 Acute kidney failure, unspecified; I69.359 Hemiplegia and hemiparesis following cerebral infarction affecting unspecified side; I48.91 Unspecified atrial fibrillation; F03.90 Unspecified dementia, unspecified severity, without behavioral disturbance, psychotic disturbance, mood disturbance, and anxiety; N18.30 Chronic kidney disease, stage 3 unspecified; K74.60 Unspecified cirrhosis of liver; I87.8 Other specified disorders of veins; I87.2 Venous insufficiency (chronic) (peripheral); E11.22 Type 2 diabetes mellitus with diabetic chronic kidney disease; T50.8X5A Adverse effect of diagnostic agents, initial encounter; E11.649 Type 2 diabetes mellitus with hypoglycemia without coma; D69.6 Thrombocytopenia, unspecified; R00.1 Bradycardia, unspecified; Z66 Do not resuscitate; I95.9 Hypotension, unspecified; I34.0 Nonrheumatic mitral (valve) insufficiency; E87.6 Hypokalemia; Z20.828 Contact with and (suspected) exposure to other viral communicable diseases; Z79.82 Long term (current) use of aspirin; Z68.26 Body mass index [BMI] 26.0-26.9, adult; Y92.89 Other specified places as the place of occurrence of the external cause; Z87.81 Personal history of (healed) traumatic fracture; Z79.899 Other long term (current) drug therapy
CPT/HCPCS: 10047; 10078; 10203